=== PATIENT | female | born 1955 | race Caucasian/White ===

== ENCOUNTER 2024-07-18 08:07 | Emergency (ER) | payer MEDICARE, SELFPAY ==
[2024-07-18 08:17] VITALS: BP 167/91; PULSE 82; RESP 16; TEMP 36.6; O2SAT 96
[2024-07-18 08:21] VITALS: RESP 20; O2SAT 98
--- NOTE | 2024-07-18 08:21 | ECG_ITS ---
Test Date: 2024-07-18 08:28:47 Measurements Intervals [place] Rate: 71 P: 67 OR: 179 QRS: 40 QRSD: 86 T: 46 QT: 385 QTc: 419 Interpretive Statements SINUS RHYTHM POSSIBLE LEFT ATRIAL ENLARGEMENT [-0.1mV P-WAVE IN V1/V2] No previous ECG available for comparison Electronically Signed On 07-18-2024 08:38:18 CDT by Leonard Templeton M.D.
--- NOTE | 2024-07-18 08:55 | ED_ITS ---
HPI - General Adult General Chief complaint: Unspecified Stated complaint: I haven't slept in 4 days Time Seen by Provider: 07/18/24 08:20 History of Present Illness HPI narrative: 68-year-old female presents to the emergency department for evaluation for jaw pain and increased sleeplessness. Patient has been on duloxetine and was recently told to stop due to this being a potential side effect of the medication. Time of evaluation patient appears to be in no distress and is well-appearing. Patient does not appear to be somnolent or sleep deprived. Related Data Allergies Allergy/AdvReac Type Severity Reaction Status Date / Time No Known Allergies Allergy Mild Verified 07/18/24 08:20 Review of Systems Review of Systems: All systems reviewed & are unremarkable except as noted in HPI and below Exam Narrative: APPEARANCE: Well appearing, no pain, no distress, well-nourished. HEAD: normocephalic, atraumatic. EYES: PERRLA/EOMI, conjunctivae clear. NOSE: Normal no drainage EARS:TMS clear with good light reflex. THROAT: Pharynx clear, no exudate. NECK: Supple. No adenopathy, no masses. RESPIRATORY: Airway patent, respirations nonlabored. Clear to auscultation bilaterally, no rales, rhonchi, wheezing. CARDIOVASCULAR: Regular rate and rhythm without murmurs rubs or gallops. ABDOMINAL: Soft, nontender, nondistended, normal bowel sounds MUSCULOSKELETAL: Moves all extremities. Strength/ROM intact, No edema, No calf tenderness. NEURO: Alert. Cranial nerves II through XII intact. Good gait. Good coordination SKIN: Warm, dry. Normal Color PSYCHIATRIC: Normal affect/mood. Course Vital Signs Vital signs: Vital Signs Temperature 97.8 F 07/18/24 08:17 Pulse Rate 82 07/18/24 08:17 Respiratory Rate 16 07/18/24 08:17 Blood Pressure 167/91 H 07/18/24 08:17 Pulse Oximetry 96 07/18/24 08:17 Oxygen Delivery Room Air 07/18/24 08:17 Temperature 97.8 F 07/18/24 08:17 Pulse Rate 77 07/18/24 10:53 Respiratory Rate 17 07/18/24 10:53 Blood Pressure 121/74 07/18/24 10:53 Pulse Oximetry 98 07/18/24 10:53 Oxygen Delivery Room Air 07/18/24 08:17 Medical Decision Making MDM Narrative Medical decision making narrative: 60-year-old female present to the emergency department for evaluation for sleep deprivation. Patient is afebrile with no leukocytosis and a stable hemoglobin of 13.5. No significant acute abnormalities on her CMP, UA was negative for infection. Patient was advised to stop her duloxetine as advised by her primary care physician. All questions concerns were addressed. Differential Diagnosis Differential Diagnosis: Adverse drug reaction, insomnia, UTI, electrolyte abnormality, infectious etiology Vital Signs Vital Signs: Vital Signs Temperature 97.8 F 07/18/24 08:17 Pulse Rate 82 07/18/24 08:17 Respiratory Rate 16 07/18/24 08:17 Blood Pressure 167/91 H 07/18/24 08:17 Pulse Oximetry 96 07/18/24 08:17 Oxygen Delivery Room Air 07/18/24 08:17 Temperature 97.8 F 07/18/24 08:17 Pulse Rate 77 07/18/24 10:53 Respiratory Rate 17 07/18/24 10:53 Blood Pressure 121/74 07/18/24 10:53 Pulse Oximetry 98 07/18/24 10:53 Oxygen Delivery Room Air 07/18/24 08:17 Lab Data Lab results reviewed: Yes I reviewed the patient's lab results. 07/18/24 09:16 07/18/24 09:16 Labs: Lab Results 07/18/24 07/18/24 Range/Units 09:16 09:41 WBC 7.1 (4.5-10.0) K/mm3 RBC 4.39 (4.2-5.4) M/mm3 Hgb 13.5 (12.0-15.0) g/dL Hct 39.0 (37.0-47.0) % MCV 88.8 (80-100) fl MCH 30.8 (26-34) pg MCHC 34.6 (32-36) g/dl RDW 13.4 (11.5-14.5) % Plt Count 375 (150-375) k/mm3 MPV 8.1 (7.4-10.4) fl Immature Gran % (Auto) 0.3 (0-0.5) % Neut % (Auto) 84.3 H (45.5-73.1) % Lymph % (Auto) 9.1 L (18.3-44.2) % [place] % (Auto) 5.5 (2.6-8.5) % Eos % (Auto) 0.4 (0-4.4) % Baso % (Auto) 0.4 (0.2-1.2) % Lymph # (Auto) 0.64 L (0.9-3.2) K/mm3 [place] # (Auto) 0.4 (0.1-0.6) K/mm3 Eos # (Auto) 0.0 (0-0.3) K/mm3 Baso # (Auto) 0.0 (0.0-0.1) K/mm3 Abs Immat Gran (auto) 0.02 (0.00-0.031) K/mm3 Absolute Neuts (auto) 5.9 (1.3-6.7) K/mm3 Absolute Nucleated RBC 0.000 (0.0-0.012) K/mm3 Nucleated RBC % 0.0 (0.0-0.2) % Sodium 129 L (137-145) mmol/L Potassium 3.6 (3.4-5.0) mmol/L Chloride 93 L (98-107) mmol/L Carbon Dioxide 29 (22-30) mmol/L Anion Gap 7 (4-12) mmol/L BUN 14 (7-17) mg/dL Creatinine 0.90 (0.7-1.0) mg/dL Estim Creat Clear Calc 41 ml/min Estimated GFR > 60 (59 - ) Glucose 96 (65-110) mg/dL Calcium 9.7 (8.4-10.2) mg/dL Total Bilirubin 0.5 (0.2-1.3) mg/dL AST 25 (14-36) U/L ALT 21 (6-35) U/L Alkaline Phosphatase 66 (38-126) U/L Total Protein 7.0 (6.3-8.2) g/dL Albumin 4.4 (3.5-5.1) g/dL Urine Color Yellow (Yellow) Urine Appearance Clear (Clear) Urine pH 7.0 (5.0-9.0) Ur Specific [place] 1.009 (1.001-1.035) Urine Protein Negative (Negative) mg/dL Urine Glucose (UA) Negative (Negative) mg/dL Urine Ketones Trace H (Negative) mg/dL Ur Blood (Man) Negative (Negative) Urine Nitrate Negative (Negative) Urine Bilirubin Negative (Negative) Urine Urobilinogen 0.2 (<2.0) mg/dL Leukocyte Esterase Rfl Negative (Negative) ESTELLE/UL Discharge Plan Discharge Clinical Impression: Adverse drug reaction, Insomnia Patient Disposition: Home, Self-Care Condition: Stable Instructions: Antibiotic Form Additional Instructions: Stop taking the duloxetine. Have close follow-up with your primary care physician. If you have any worsening symptoms then please call or return to the emergency department. Follow-up/Referrals: Yasmine,Brodie Muñoz MD [Primary Care Provider] -
[2024-07-18 09:22] LABS: Basophils Percent Auto 0.4 % (0.2-1.2); Eosinophils Percent Auto 0.4 % (0-4.4); Hemoglobin 13.5 g/dL (12.0-15.0); Immature Granulocyte Absolute 0.02 K/mm3 (0.00-0.031); Immature Granulocyte Percent A 0.3 % (0-0.5); Lymphocytes Absolute Auto 0.64 K/mm3 (0.9-3.2); Lymphocytes Percent Auto 9.1 % (18.3-44.2); Mean Corpuscular HGB Conc 34.6 g/dl (32-36); Mean Corpuscular Hemoglobin 30.8 pg (26-34); Mean Corpuscular Volume 88.8 fl (80-100); Mean Platelet Volume 8.1 fl (7.4-10.4); Monocytes Absolute Auto 0.4 K/mm3 (0.1-0.6); Monocytes Percent Auto 5.5 % (2.6-8.5); Neutrophils Absolute Auto 5.9 K/mm3 (1.3-6.7); Neutrophils Percent Auto 84.3 % (45.5-73.1); Platelet Count Result 375 k/mm3 (150-375); Red Blood Count 4.39 M/mm3 (4.2-5.4); Red Cell Distribution Width 13.4 % (11.5-14.5); White Blood Count 7.1 K/mm3 (4.5-10.0)
[2024-07-18 09:34] LABS: Alanine Aminotransferase 21 U/L (6-35); Albumin Level 4.4 g/dL (3.5-5.1); Alkaline Phosphatase 66 U/L (38-126); Anion Gap 7 mmol/L (4-12); Aspartate Amino Transferase 25 U/L (14-36); Bilirubin,Total 0.5 mg/dL (0.2-1.3); Blood Urea Nitrogen 14 mg/dL (7-17); Calcium 9.7 mg/dL (8.4-10.2); Carbon Dioxide 29 mmol/L (22-30); Chloride 93 mmol/L (98-107); Estimated CRCL calculation 41 ml/min; Estimated Glomerular Filt Rate > 60; Glucose 96 mg/dL (65-110); Potassium 3.6 mmol/L (3.4-5.0); Sodium 129 mmol/L (137-145)
[2024-07-18 09:53] LABS: Add Urine Microscopic? NO; Appearance Urine Clear (Clear); Bilirubin Urine Negative (Negative); Blood Urine Negative (Negative); Color Urine Yellow (Yellow); Glucose Urine UA Negative (Negative); Ketones Urine Trace mg/dL (Negative); Leukocyte Esterase Ur Negative LEU/UL (Negative); Nitrate Urine Negative (Negative); Protein Urine Negative (Negative); Specific Grav Ur 1.009 (1.001-1.035); Urobilinogen Urine 0.2 mg/dL (<2.0)
[2024-07-18 10:53] VITALS: BP 121/74; PULSE 77; RESP 17; O2SAT 98
== END 2024-07-18 10:55 | disposition home or self-care (01) ==
PROVIDERS: Emergency Provider Emergency Medicine; PCP Family Medicine
DX: G47.00 Insomnia, unspecified (principal); T43.215A Adverse effect of selective serotonin and norepinephrine reuptake inhibitors, initial encounter; R68.84 Jaw pain; Z79.899 Other long term (current) drug therapy
CPT/HCPCS: 36415; 80053; 81003; 85025; 93005; 99283